=== PATIENT | male | born 1990 | race Caucasian/White ===

== ENCOUNTER → 2017-08-11 | Outpatient (CLI) | payer BC, OTHER ==
[~2017-08-11] MED LIST: ADVIN10/60 INH; ALBUAER2 INH
[2017-08-11 17:34] LABS: BASO % 0.3 %; BASO ABS # 0.02 K/uL (0-0.2); COMPLETE YES; HEMATOCRIT 40.7 % (42-52); IG% 0.1 %; LYMPH % 11.9 %; LYMPH ABS # 0.83 K/uL (1.2-3.4); MEAN CELL VOLUME 87.2 fL (80-100); MEAN CORPUSCULAR HEMOGLOBIN 30.8 pg (25-34); MEAN CORPUSCULAR HGB CONC 35.4 g/dl (32-36); MEAN PLATELET VOLUME 10.8 fL (7.4-10.4); MONO % 11.2 %; NEUT % 71.5 %; PLATELET COUNT 196 K/uL (130-400); RED BLOOD COUNT 4.67 M/uL (4.7-6.1); WHITE BLOOD COUNT 6.95 K/uL (4.8-10.8)
[2017-08-11 17:52] LABS: ALT/SGPT 21 U/L (12-78); AST/SGOT 17 U/L (15-37); BLOOD UREA NITROGEN 15 mg/dl (7-18); BUN/CREATININE RATIO 16.6 (10-20); CALCIUM 8.9 mg/dl (8.5-10.1); CARBON DIOXIDE 26 mmol/L (21-32); CHLORIDE 106 mmol/L (98-107); GLUCOSE 90 mg/dl (70-99); POTASSIUM 4.1 mmol/L (3.5-5.1); SODIUM 139 mmol/L (136-145)
[2017-08-11 18:13] LABS: ALB/GLOB RATIO 1.4 (0.9-2); ALKALINE PHOSPHATASE 88 U/L (45-117); THYROID STIMULATING HORMONE 0.782 uIu/ml (0.300-4.500)
[2017-08-11 18:14] LABS: LYME DISEASE AB IGG NEG (NEG)
[2017-08-11 18:17] LABS: LYME DISEASE AB IGM NEG (NEG)
[2017-08-15 15:45] LABS: EBV EARLY ANTIGEN AB <9.00 U/ML
== END | disposition home or self-care (01) ==
LOC: C.LABPBG 15:24
PROVIDERS: ATTEND Family Medicine
DX: R53.81 Other malaise (principal)

== ENCOUNTER 2023-11-17 11:25 | Observation (INO) ==
--- NOTE | 2023-11-17 11:50 | ED Triage Note ---
Date of Service November 17, 2023 Provider in Triage Author: Reagan Herron History of Present Illness This patient was briefly evaluated while in triage. An abbreviated physical exam was performed. This patient is a 33-year-old Male who presents to the ED for evaluation of left shoulder pain. Numbness tingling in fingers and pain as well. L shoulder/neck area. Started 3-4 weeks ago. Thought slept on it wrong. 3 days ago started to worsen and now its the worst. At [facility] and Rx a steroid recently. L sided. R handed. Worst pain he has ever had. Physical Exam GENERAL: 33 year old male. In no acute distress. SKIN: No lesions or rashes. HEART: Regular rate and rhythm. LUNGS: Clear to auscultation. ABDOMEN: Bowel sounds normoactive. No guarding or rigidity. No tenderness of palpation. NEURO: Alert and oriented. No deficits. MUSCULOSKELETAL: No deformities to inspection of the extremities. L arm in dependent position. Decreased ROM secondary to pain. PSYCH: Patient is pleasant and answers all questions appropriately. Initial orders for labs and / or imaging were placed and patient was placed in the waiting area until a bed is available. Please see further documentation for the full ED course.
--- NOTE | 2023-11-17 12:01 | Emergency Department Note ---
History of Present Illness General Chief complaint: Shoulder Pain Stated complaint: PINCHED NERVE (SHOULDER, LEFT) Time Seen by Provider: 11/17/23 11:52 History of Present Illness Maximum Pain Intensity: 10 This is an otherwise healthy 33-year-old male that presents to the emergency department via private vehicle with complaints of "left arm pain". The patient notes that beginning about 3 to 4 weeks ago he noticed some mild discomfort throughout the left side of the neck that radiated down the left arm. No known trauma or injury. Then over the past 3 days he notes significant worsening now to the point where he has trouble lifting his head secondary to neck pain and pain radiating down the left arm. He notes that there is now numbness/tingling in digits 1, 2 and 3 of the left hand. This is the nondominant extremity. No preceding illness. No fevers or chills. No known trauma or injury. No chest pain or shortness of breath. No IV drug use. No history of spine surgeries. Home Medications Medication Instructions Recorded Confirmed Type diphenhydramine HCl 25 mg tablet 25 mg PO TID PRN Allergy Symptoms 07/01/23 11/17/23 History (Benadryl Allergy) prochlorperazine maleate 5 mg 5 mg PO BID PRN nausea and 08/09/23 11/17/23 Rx tablet (Compazine) vomiting #10 tabs famotidine 20 mg tablet 20 mg PO BID #60 tabs 09/30/23 11/15/23 Rx albuterol sulfate 90 mcg/actuation 2 inh inhalation Q4H PRN shortness 10/17/23 11/17/23 Rx aerosol inhaler (ProAir HFA) of breath or wheezing #8.5 grams ibuprofen 200 mg tablet 400 mg PO Q6H PRN Pain 11/15/23 11/15/23 History pantoprazole 40 mg tablet,delayed 40 mg PO BID 1 month #60 tabs 11/16/23 11/17/23 Rx release (Protonix) fluticasone 100 mcg-salmeterol 50 0 inh inhalation BID 11/17/23 11/17/23 History mcg/dose blistr powdr for inhalation (Advair Diskus) Allergies Allergy/AdvReac Type Severity Reaction Status Date / Time montelukast [From Singulair] Allergy Mild Migraines Verified 11/15/23 13:12 and vomiting. oxycodone [From Percocet] Allergy Mild Itching Verified 11/15/23 13:12 Past Med/Surg History Medical History Asthma uses all inhalers prn Environmental allergies GERD (gastroesophageal reflux disease) Hx of migraines Surgical History Hx of local excision of skin lesion as a child, mole removed History of wisdom tooth extraction Family History Grandmother (Paternal) Myocardial infarction Denies family history of Ovarian cancer Prostate cancer Breast cancer Colorectal cancer Social History Smoking Status: Never smoker Second Hand Exposure: No; Do You Dip or Chew Tobacco: No; Hx Alcohol Use: No Hx Substance Use: No Preferred Language: Irish Communication Ability: Effective Visual Impairment: No Limitations 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 Soda x 1 bottle per day.) during the past year weight has: remained stable Dental Care, Regularly: Yes Physical Activity Frequency: Daily Seatbelt Use: always Sunscreen Use: No Assistive Devices: None Review of Systems A total of 10 systems reviewed and were otherwise negative Physical Exam Vital Signs Vital Signs - 24 hr 11/17/23 11:48 11/17/23 13:17 11/17/23 13:31 Temperature 36.9 C Temperature Source Temporal Artery Scan Pulse Rate 85 77 Pulse Rate [Apical] 105 H Pulse Rhythm [Apical] Regular Pulse Strength [Apical] Normal Respiratory Rate 18 19 Respiratory Effort / Characteristics Non-Labored Non-Labored Spontaneous Respiratory Depth Normal Normal Blood Pressure 136/82 Blood Pressure [Left Arm] 136/105 H Blood Pressure Mean 100 Blood Pressure Mean [Left Arm] 115 Pulse Oximetry 97 97 Oxygen Delivery Method Room Air Room Air Sepsis Recent Fever Within 48 Hours No Sepsis New/Unexplained Change in Mental Status No Sepsis Action Taken by Nursing No Action Required 11/17/23 13:35 11/17/23 14:52 Temperature Temperature Source Pulse Rate Pulse Rate [Apical] 92 H Pulse Rhythm [Apical] Regular Pulse Strength [Apical] Normal Respiratory Rate 18 Respiratory Effort / Characteristics Non-Labored Spontaneous Respiratory Depth Normal Blood Pressure Blood Pressure [Left Arm] 134/88 Blood Pressure Mean Blood Pressure Mean [Left Arm] 103 Pulse Oximetry 98 95 Oxygen Delivery Method Room Air Room Air Sepsis Recent Fever Within 48 Hours Sepsis New/Unexplained Change in Mental Status Sepsis Action Taken by Nursing VITAL SIGNS - Vital signs and nursing notes were reviewed. Stable and afebrile. GENERAL -33-year-old male appearing his stated age who is in no acute distress. Communicates well with provider and answers questions appropriately. SKIN - Without rashes. No meningeal or petechial rash. The skin overlying the left side of the neck, left side of the head and left arm is unremarkable. No rashes. HEAD - NC/AT. EYES - PERRL with EOMI bilaterally. Sclera anicteric. EARS - No deformities of external structures noted on gross examination bilaterally. External auditory canals without discharge or otorrhea. Tympanic membranes pearly landin without retraction or bulging. No fluid or purulent material visualized behind the TM. Handle of malleus, umbo, cone of light, pars tensa/flaccid all easily visualized. NOSE - Midline and without cyanosis. No epistaxis or purulent drainage noted. Septum midline without deviation or septal hematoma noted. MOUTH/OROPHARYNX - Without perioral cyanosis. Buccal mucosa pink and moist and without leukoplakia. Tongue midline with equal elevation of palate bilaterally. No tonsillar hypertrophy, erythema, or exudates noted. Good dentition noted. NECK -patient is sitting in a chair in the exam room with the neck in a downward/forward flexed position. Decreased range of motion noted secondary to pain. No tenderness throughout the neck to palpation. Palpable muscle spasm to the left posterior paraspinous musculature throughout the C-spine extending in the left trapezius region no nuchal rigidity. LUNGS - Chest wall symmetric without accessory muscle use, intercostals retractions, or central cyanosis. Normal vesicular breath sounds CTA B/L. No wheezes, rales, or rhonchi appreciated. CARDIAC - RRR with S1/S2. No murmur, rubs, or gallops appreciated. EXTREMITIES - No clubbing or peripheral cyanosis. No pretibial edema present. Left upper extremity appropriately warm and well-perfused. Physician Pediatrician strength within normal limits bilaterally. Biceps reflex within normal limits bilaterally. +5/5 strength noted in UE/LE bilaterally. NEUROLOGIC - Cranial nerves II through XII grossly intact. Sensory intact to light touch throughout. PSYCH - A&Ox3 and cooperates fully with examiner. Pt is very pleasant and interacts well with examiner. Course Administered Medications Discontinued Medications Cyclobenzaprine HCl (Cyclobenzaprine Hcl 10 Mg Tab) 10 mg PO NOW STA Stop: 11/17/23 12:08 Last Admin: 11/17/23 12:19 Dose: 10 mg Documented By: TEE Dexamethasone Sodium Phosphate (DexamethasonePf 10 Mg/Ml Vial) 10 mg IV NOW ONE Stop: 11/17/23 12:08 Last Admin: 11/17/23 12:21 Dose: 10 mg Documented By: TEE Hydromorphone HCl (Hydromorphone Inj 0.5 Mg/0.5 Ml Syr) 0.5 mg IV NOW STA Stop: 11/17/23 13:10 Last Admin: 11/17/23 13:16 Dose: 0.5 mg Documented By: TEE Hydromorphone HCl (Hydromorphone Inj 0.5 Mg/0.5 Ml Syr) 0.5 mg IV NOW STA Stop: 11/17/23 14:45 Last Admin: 11/17/23 14:49 Dose: 0.5 mg Documented By: TEE Lidocaine (Lidocaine 5% 1 Patch) 1 patch TD NOW STA Stop: 11/17/23 12:08 Last Admin: 11/17/23 12:20 Dose: 1 patch Documented By: TEE Ondansetron HCl (Ondansetron Inj 2 Mg/Ml 2 Ml Vial) 4 mg IV NOW STA Stop: 11/17/23 13:10 Last Admin: 11/17/23 13:14 Dose: 4 mg Documented By: TEE Medical Decision Making Laboratory Data 11/17/23 12:00 11/17/23 12:00 Lab Results 11/17/23 Range/Units 12:00 WBC 5.42 (4.8-10.8) K/ul RBC 5.34 (4.70-6.10) M/uL Hgb 16.8 (14.0-18.0) g/dl Hct 45.3 (42.0-52.0) % MCV 84.8 (80.0-100.0) fL MCH 31.5 (25.0-34.0) pg MCHC 37.1 H (32.0-36.0) g/dL RDW Std Deviation 36.3 L (36.4-46.3) fL RDW Coeff of Valentina 11.9 (11.5-14.5) % Plt Count 234 (130-400) K/uL MPV 10.7 (9.4-12.4) fL Immature Gran % (Auto) 0.2 % Neut % (Auto) 56.5 % Lymph % (Auto) 21.2 % Harmon % (Auto) 5.5 % Eos % (Auto) 15.7 % Baso % (Auto) 0.9 % Neut # (Auto) 3.06 (1.40-6.50) K/uL Lymph # (Auto) 1.15 L (1.20-3.40) K/uL Harmon # (Auto) 0.30 (0.11-0.59) K/uL Eos # (Auto) 0.85 H (0.00-0.50) K/uL Baso # (Auto) 0.05 (0.00-0.20) K/uL Immature Gran # (Auto) 0.01 (0.01-0.20) K/uL Sodium 139 (136-145) mmol/L Potassium 4.4 (3.5-5.1) mmol/L Chloride 106 (98-107) mmol/L Carbon Dioxide 27 (21-32) mmol/L Anion Gap 6 (3-11) BUN 17 (6-23) mg/dl Creatinine 0.96 (0.6-1.4) mg/dl Est Cr Clr Drug Dosing 108.4 ml/min Est GFR ( Amer) 119.0 ml/min Est GFR (Non-Af Amer) 102.7 ml/min BUN/Creatinine Ratio 17.7 (10-20) Glucose 97 (70-99(Fasting)) mg/dl Calcium 9.9 (8.6-10.3) mg/dl Total Bilirubin 0.7 (0.2-1.0) mg/dl AST 20 (13-39) U/L ALT 28 (7-52) U/L Alkaline Phosphatase 74 (34-104) U/L Total Protein 7.5 (6.0-8.3) gm/dl Albumin 4.9 (3.4-5.0) gm/dl Globulin 2.6 (2.5-4.0) gm/dl Albumin/Globulin Ratio 1.9 (0.9-2) Imaging Data Radiologist's Impression: Cervical Spine X-Ray 11/17/23 11:51 XR cervical [id number] routine HISTORY: 33 years-old Male L sided neck pain acute left-sided neck pain without reported trauma COMPARISON: None TECHNIQUE: 5 views of the cervical spine FINDINGS: Limited exam secondary to positioning and patient movement. There is kyphotic curvature centered at C5-C6 which may be positional. The C6 and C7 segments are not well seen on lateral images secondary to positioning. No acute fracture, subluxation or suspicious bone lesion. Mild intervertebral disc space narrowing and spondylotic spurring at C6-C7. The neural foramina appear patent. No prevertebral edema. Lung apices appear clear. IMPRESSION: No acute fracture or subluxation identified. ACT 112: Negative or not required by law. The above report was generated using voice recognition software. It may contain grammatical, syntax or spelling errors. Electronically signed by: Enrique Roman M.D. 11/17/2023 12:26 PM Cervical Spine MRI 11/17/23 13:09 MRI OF THE CERVICAL SPINE WITHOUT IV CONTRAST CLINICAL HISTORY: Left-sided neck pain. Left arm pain and numbness. COMPARISON STUDY: Radiographs of the cervical spine dated 11/17/2023. TECHNIQUE: MRI of the cervical spine is performed utilizing various T1 and T2- weighted sequences in the axial and sagittal planes. IV contrast was not administered for this examination. FINDINGS: Cervical spine: Vertebral body height and alignment are maintained throughout the cervical spine. There is straightening of the cervical lordosis with mild reversal centered at C6. The atlantodental articulation is preserved. The spinous processes appear intact. No destructive bony lesion is seen. Intervertebral discs: There is mild disc desiccation. The disc spaces are maintained. Spinal cord: The cervical cord is normal in morphology and signal intensity. C2-C3: Unremarkable. C3-C4: Unremarkable. C4-C5: A tiny posterior disc osteophyte complex minimally effaces the ventral subarachnoid space. The central canal and neural foramina are patent. C5-C6: Unremarkable. C6-C7: There is a large left posterolateral disc extrusion seen on sagittal image #10 and axial image #91. The extruded fragment measures up to 8 mm and impinges on the exiting left C7 nerve root. This effaces the left anterior aspect of the thecal sac and contributes to at least moderate left neural foraminal stenosis. The right neural foramen is patent. C7-T1: Unremarkable. Soft tissues: The prevertebral and paraspinous soft tissues are normal as visualized. Brain parenchyma: The imaged brain parenchyma at the skull base is within normal limits. IMPRESSION: 1. Large posterolateral disc extrusion eccentric to the left at C6-C7. This causes at least moderate left neural foraminal stenosis and impinges on the exiting left C7 nerve root. 2. Minimal degenerative change at the remaining cervical levels as above. 3. No destructive bony process is seen. Dictated: 11/17/2023 2:17 PM Transcribed: 11/17/2023 2:56 PM [facility] [id number] Chasity [id number] Electronically signed by: Junito Antonio M.D. 11/17/2023 3:14 PM [facility] Narrative Patient was seen and evaluated as above in room D02. Review was performed of triage nursing notes and vital signs. After obtaining a thorough history and physical examination the above work up was performed. Patient presents to us today for evaluation of ongoing left-sided neck pain that radiates in the left arm now with numbness/tingling in digits 1 2 and 3 of the left hand. This does seem to fit with dermatomes C6/C7. Presentation most consistent with that of cervical radiculopathy. No infectious symptoms. Options of care were discussed with the patient. IV access was established. Labs were drawn. He already had ibuprofen as well as acetaminophen earlier today around 9 AM. We will proceed with a dose of IV steroids, oral muscle relaxer such as cyclobenzaprine and topical lidocaine patch. Cervical spine x- rays were ordered. Patient was reevaluated with minimal improvement. I did speak with Dr. Damico at 1:28 PM on 11/17/2023. We will proceed with MRI of the cervical spine. I called MRI and he will be taken there to MRI momentarily. Dr. Damico will watch for the MRI and call with his recommendations. MRI as above. There is a large posterior lateral disc extrusion eccentric to the left at C6-C7. This causes at least moderate left neuroforaminal stenosis and impinges on the exiting left C7 nerve root. This is felt to be the cause of the patient's symptoms. Despite several rounds of IV analgesia and medication the patient continues to be experiencing significant discomfort in the neck with radicular symptoms on the left upper extremity. Dr. Damico came to evaluate the patient and plan at this time is inpatient management with likely surgical intervention tomorrow. Patient amenable to plan of care. Please refer to further documentation regarding his stay. GCS: 15 In the evaluation and treatment of this patient, the following differential diagnoses were considered: Musculoskeletal Strain, Discitis, Cervical Spine Fracture, Cervical Spine Dislocation, Cervical Spine Subluxation, Cervical Spondylosis, Osteoarthritis, Tumor of Soft Tissue or Spine among others. Impression & Plan Herniation of cervical intervertebral disc with radiculopathy Discharge Plan Visit Data Chief Complaint: Shoulder Pain Stated Complaint: PINCHED NERVE (SHOULDER, LEFT) ED Provider: Mita Kitchen ED Midlevel Provider: Reagan Herron Discharge Problem: Herniation of cervical intervertebral disc with radiculopathy Patient Disposition: Admitted As Inpatient Condition: Good Forms Stand Alone Forms: [employer] Prescriptions Prescriptions: No Action prochlorperazine maleate [Compazine] 5 mg tablet 5 mg PO BID PRN (Reason: nausea and vomiting) Qty: 10 0RF Patient Comments: uses w/migraines albuterol sulfate [ProAir HFA] 90 mcg/actuation HFA aerosol inhaler 2 inh inhalation Q4H PRN (Reason: shortness of breath or wheezing) Qty: 8.5 1RF pantoprazole [Protonix] 40 mg tablet,delayed release (DR/EC) 40 mg PO BID 30 Days Qty: 60 3RF famotidine 20 mg tablet 20 mg PO BID Qty: 60 2RF Patient Comments: have medication, but has not needed due to increase in Protonix. diphenhydramine HCl [Benadryl Allergy] 25 mg tablet 25 mg PO TID PRN (Reason: Allergy Symptoms) ibuprofen 200 mg Tablet 400 mg PO Q6H PRN (Reason: Pain) Patient Comments: ususally uses 2 tablets per day fluticasone propion-salmeterol [Advair Diskus] 100-50 mcg/dose blister with device 0 inh inhalation BID Patient Comments: doesn't use Rx Instructions: Last fill date 02/2023 - Unable to verify w/ pt if they have been getting this medication somewhere else. Referrals Referrals: Shelia Lomax DO [Primary Care Provider] -
[2023-11-17] MEDS ORDERED: LIDOCAINE 5% 1 PATCH TD STA (12:07)
[2023-11-17] MEDS ORDERED: dexAMETHasone**PF** 10 MG/ML VIAL IV ONE (12:07)
[2023-11-17] MEDS ORDERED: CYCLOBENZAPRINE HCL 10 MG TAB PO STA (12:07)
[2023-11-17 12:19] LABS: Basophils # (auto) 0.05 K/uL (0.00-0.20); Basophils % (auto) 0.9 %; Eosinophils # (auto) 0.85 K/uL (0.00-0.50); Eosinophils % (auto) 15.7 %; Hematocrit (blood only) 45.3 % (42.0-52.0); Hemoglobin 16.8 g/dl (14.0-18.0); Immature Granulocytes # (auto) 0.01 K/uL (0.01-0.20); Immature Granulocytes % (auto) 0.2 %; Lymphocytes # (auto) 1.15 K/uL (1.20-3.40); Lymphocytes % (auto) 21.2 %; Mean Corpuscular Hemoglobin 31.5 pg (25.0-34.0); Mean Corpuscular Hgb Conc 37.1 g/dL (32.0-36.0); Mean Corpuscular Volume 84.8 fL (80.0-100.0); Mean Platelet Volume 10.7 fL (9.4-12.4); Monocytes % (auto) 5.5 %; Neutrophils # (auto) 3.06 K/uL (1.40-6.50); Neutrophils % (auto) 56.5 %; Platelet Count 234 K/uL (130-400); RDW Coefficient of Variation 11.9 % (11.5-14.5); RDW Standard Deviation 36.3 fL (36.4-46.3); Red Blood Count 5.34 M/uL (4.70-6.10); White Blood Count 5.42 K/ul (4.8-10.8)
--- NOTE | 2023-11-17 12:27 | XRay Report ---
XR cervical [id number] routine HISTORY: 33 years-old Male L sided neck pain acute left-sided neck pain without reported trauma COMPARISON: None TECHNIQUE: 5 views of the cervical spine FINDINGS: Limited exam secondary to positioning and patient movement. There is kyphotic curvature centered at C 5-C6 which may be positional. The C6 and C7 segments are not well seen on lateral images secondary to positioning. No acute fracture, subluxation or suspicious bone lesion. Mild intervertebral disc spac e narrowing and spondylotic spurring at C6-C7. The neural foramina appear patent. No prevertebral fide ma. Lung apices appear clear. IMPRESSION: No acute fracture or subluxation identified. ACT 112: Negative or not required by law. The above report was generated using voice recognition software. It may contain grammatical, syntax o r spelling errors. Electronically signed by: Enrique Roman M.D. 11/17/2023 12:26 PM
[2023-11-17 12:39] LABS: Albumin Globulin Ratio 1.9 (0.9-2); Albumin Level 4.9 gm/dl (3.4-5.0); BUN Creatinine Ratio 17.7 (10-20); Bilirubin,Total 0.7 mg/dl (0.2-1.0); Calcium 9.9 mg/dl (8.6-10.3); Creatinine Clr Calc Pharmacy 108.4 ml/min; Est GFR (Non-African American) 102.7 ml/min; Globulin 2.6 gm/dl (2.5-4.0); Potassium 4.4 mmol/L (3.5-5.1); Total Protein 7.5 gm/dl (6.0-8.3)
[2023-11-17] MEDS ORDERED: ONDANSETRON INJ 2 MG/ML 2 ML VIAL IV STA (13:09)
[2023-11-17] MEDS ORDERED: HYDROmorphone INJ 0.5 MG/0.5 ML SYR IV STA ×3 (13:09→17:27)
--- NOTE | 2023-11-17 15:16 | Magnetic Resonance Report ---
MRI OF THE CERVICAL SPINE WITHOUT IV CONTRAST CLINICAL HISTORY: Left-sided neck pain. Left arm pain and numbness. COMPARISON STUDY: Radiographs of the cervical spine dated 11/17/2023. TECHNIQUE: MRI of the cervical spine is performed utilizing various T1 and T2-weighted sequences in t he axial and sagittal planes. IV contrast was not administered for this examination. FINDINGS: Cervical spine: Vertebral body height and alignment are maintained throughout the cervical spine. The re is straightening of the cervical lordosis with mild reversal centered at C6. The atlantodental art iculation is preserved. The spinous processes appear intact. No destructive bony lesion is seen. Intervertebral discs: There is mild disc desiccation. The disc spaces are maintained. Spinal cord: The cervical cord is normal in morphology and signal intensity. C2-C3: Unremarkable. C3-C4: Unremarkable. C4-C5: A tiny posterior disc osteophyte complex minimally effaces the ventral subarachnoid space. The central canal and neural foramina are patent. C5-C6: Unremarkable. C6-C7: There is a large left posterolateral disc extrusion seen on sagittal image #10 and axial image #91. The extruded fragment measures up to 8 mm and impinges on the exiting left C7 nerve root. This effaces the left anterior aspect of the thecal sac and contributes to at least moderate left neural f oraminal stenosis. The right neural foramen is patent. C7-T1: Unremarkable. Soft tissues: The prevertebral and paraspinous soft tissues are normal as visualized. Brain parenchyma: The imaged brain parenchyma at the skull base is within normal limits. IMPRESSION: 1. Large posterolateral disc extrusion eccentric to the left at C6-C7. This causes at least moderate left neural foraminal stenosis and impinges on the exiting left C7 nerve root. 2. Minimal degenerative change at the remaining cervical levels as above. 3. No destructive bony process is seen. Dictated: 11/17/2023 2:17 PM Transcribed: 11/17/2023 2:56 PM T[facility] [id number] Chasity [id number] Electronically signed by: Junito Antonio M.D. 11/17/2023 3:14 PM
--- NOTE | 2023-11-17 15:22 | History & Physical Report ---
Date of Service November 17, 2023 Assessment & Plan (1) Herniation of cervical intervertebral disc with radiculopathy: Plan: Assessment cervical disc herniation C6-C7 on left with fragments occupying the neuroforamen. Plan in length yesterday with the patient and his reviewing his MRI findings and clinical presentation. This point he has severe discomfort marked neural deficits with weakness involving left upper extremity. He could consider surgical invention. It would require an anterior cervical discectomy and C6-C7 for adequate removal of the disc fragments and decompression of the nerve roots. Risk benefits pros cons alternatives were detail. Risk include but not limited to anesthesia blindness stroke paralysis nerve damage blood loss requiring transfusion infection requiring reoperation dysphagia and dysphonia. Benefits would be improvement of his radiculopathy and time recovery of his strength deficits. At this time would like to pursue surgery in light of his severe pain. Will make him n.p.o. after midnight with plan for surgery in the a.m. History of Present Illness Chief Complaint: Severe left arm pain with weakness Primary Care Provider: Shelia Lomax DO This is a 33-year-old [id number] male who presents emergency room with severe left arm pain and weakness. He states he had a history of neck pain and left arm symptoms for approximately a month. Unfortunately last 2 days it has been severe in nature. Is nonradiating. It radiates to the left intrascapular region down the left posterior arm below the elbow into his middle fingers. His right upper extremity is asymptomatic. He denies any specific trauma fall or event. He notes marked sensory deficits to the left hand compared to the right. He is unable to sleep. Medications are not providing any relief. Allergies Allergy/AdvReac Type Severity Reaction Status Date / Time montelukast [From Singulair] Allergy Mild Migraines Verified 11/15/23 13:12 and vomiting. oxycodone [From Percocet] Allergy Mild Itching Verified 11/15/23 13:12 Home Medications Medication Instructions Recorded Confirmed Type diphenhydramine HCl 25 mg tablet 25 mg PO TID PRN Allergy Symptoms 07/01/23 11/17/23 History (Benadryl Allergy) prochlorperazine maleate 5 mg 5 mg PO BID PRN nausea and 08/09/23 11/17/23 Rx tablet (Compazine) vomiting #10 tabs famotidine 20 mg tablet 20 mg PO BID #60 tabs 09/30/23 11/15/23 Rx albuterol sulfate 90 mcg/actuation 2 inh inhalation Q4H PRN shortness 10/17/23 11/17/23 Rx aerosol inhaler (ProAir HFA) of breath or wheezing #8.5 grams ibuprofen 200 mg tablet 400 mg PO Q6H PRN Pain 11/15/23 11/15/23 History pantoprazole 40 mg tablet,delayed 40 mg PO BID 1 month #60 tabs 11/16/2311/17 Rx release (Protonix) fluticasone 100 mcg-salmeterol 50 0 inh inhalation BID 11/17/23 11/17/23 History mcg/dose blistr powdr for inhalation (Advair Diskus) Past Med/Surg History Medical History Asthma uses all inhalers prn Environmental allergies GERD (gastroesophageal reflux disease) Hx of migraines Surgical History Hx of local excision of skin lesion as a child, mole removed History of wisdom tooth extraction Family History Grandmother (Paternal) Myocardial infarction Denies family history of Ovarian cancer Prostate cancer Breast cancer Colorectal cancer Social History Smoking Status: Never smoker Second Hand Exposure: No; Do You Dip or Chew Tobacco: No; Hx Alcohol Use: No Hx Substance Use: No Preferred Language: Amharic Communication Ability: Effective Visual Impairment: No Limitations Hearing Ability: Normal Manager Clinical Services Required: No Beliefs That Will Affect Care: None marital status: Current Living Situation: Spouse and Family current occupational status: employed Feels Safe at Home: Yes Childhood Exposure to Second-Hand Smoke: Yes (mother smoked.) Diet: regular Diet Comment: Regular caffeine: Yes (Tea x 2 per day. Soda x 1 bottle per day.) during the past year weight has: remained stable Dental Care, Regularly: Yes Physical Activity Frequency: Daily Seatbelt Use: always Sunscreen Use: No Assistive Devices: None Physical Exam Physical Exam: On exam is seen by the side of the bed. He holds his head flexed. He is unable to look up secondary to pain with cervical extension. He has markedly positive Spurling's to the left. He exhibits a plus 5 out of 5 bilateral grasp and biceps with a 3/5 left tricep compared to 5/5 on the right. There is marked sensory deficits to light touch to the left lower extremity compared to the right. Deep tendon reflexes are diminished. Negative Deborah sign. Results & Data Results & Data Vital Signs (Past 12 Hours) Vital Signs Temp Pulse Pulse Resp BP BP Pulse Ox 11/17/23 14:52 92 H 18 134/88 95 11/17/23 13:35 98 11/17/23 13:31 77 11/17/23 13:17 105 H 19 136/105 H 97 11/17/23 11:48 36.9 C 85 18 136/82 97 O2 Del Method 11/17/23 14:52 Room Air 11/17/23 13:35 Room Air 11/17/23 13:31 11/17/23 13:17 Room Air 11/17/23 11:48 Room Air
--- OUTSIDE RECORDS SUMMARY | 2023-11-17 15:28 | External Medical Summary | Summary of Care ---
Author Name Unknown Organization [facility] Address [address] [place] [address] Phone [phone] Care Team Providers Care Environmental Law Professor Name Role Phone Unavailable Primary Care Provider Unavailabl e Reason for Visit * Reason Comments Physical-Exam Encounter Details Date Type Department Care Team (Late st Contact Info) Description 11/04/2023 8:00 AM EST Office Visit Family Medicine [address] [phone] Mercedez Peralta PA-C [address] [place] [address] [place] [id number] [facility] Bottom Wheeler's Physical* Allergies Active Allergy Reactions Criticality Noted Date Comments Sumatriptan 12/17/2021 Oxycodone 12/17/2021 Percocet Montelukast 12/17/2021 documented as of this encounter (statuses as of 11/04/2023) Medications Medication Sig Dispensed Refills Start Date End Date Status ALBUTEROL 90 MCG/ACT IN AERS as directed 0 12/21/2006 Active ADVAIR DISKUS 100-50 MCG/DOSE IN AEPB as directed 0 Active Omeprazole 20 MG Oral Capsule Delayed Release (PriLOSEC) Take 1 Capsule by mouth in the morning. 0 Active documented as of this encounter (statuses as of 11/04/2023) Active Problems No known active problems documented as of this encounter (statuses as of 11/04/2023) Immunizations No known immunizationsdocumented as of this encounter Social History Tobacco Use Types Packs/Day Years Used Date Smoking Tobacco: Never Smokeless Tobacco: Never Alcohol Use Standard Drinks/Week Comments No 0 (1 standard drink = 0.6 oz pur e alcohol) Sex and Gender Information Value Date Recorded Sex Assigned at Not on file Gender Identity Not on file Sexual Orientation Not on file Job Start Date Occupation Industry Not on file Not on file Not on file documented as of this encounter Last Filed Vital Signs Vital Sign Reading Time Taken Comments Blood Pressure - - Pulse 86 11/04/2023 8:05 AM EST Temperature 36.4 C (97.5 F) 11/04/2023 8:05 AM ES T Respiratory Rate 16 11/04/2023 8:05 AM EST Oxygen Saturation - - Inhaled Oxygen Concentration - - Weight 77.7 kg (171 lb 4 oz) 11/04/2023 8:05 AM EST Height 175.3 cm (5' 9") 11/04/2023 8:05 AM EST Body Mass Index 25.29 11/04/2023 8:05 AM EST documented in this encounter Progress Notes * Mercedez Peralta PA-C - 11/04/2023 8:05 AM EST Nursing Notes: Tori Askew LPN 11/04/23 0806 Sign at exiting of workspace CDL Pt here today for CDL PE. Pt with PMH of asthma, GERD. Pt has no issues at this time. Review of patient's allergies indicates: Allergen Reactions Imitrex [Sumatriptan] Oxycodone Percocet Singulair [Montelukast] Current Outpatient Medications Medication Sig Dispense Refill ALBUTEROL 90 MCG/ACT IN AERS as directed 0 ADVAIR DISKUS 100-50 MCG/DOSE IN AEPB as directed Omeprazole 20 MG Oral Capsule Delayed Release (PriLOSEC) Take by mouth 20 mg in the morning. No current facility-administered medications for this visit. No past medical history on file. Social History Socioeconomic History Marital status: Single Spouse name: Not on file Number of children: Not on file Years of education: Not on file Highest education level: Not on file Occupational History Not on file Tobacco Use Smoking status: Never Smokeless tobacco: Never Substance and Sexual Activity Alcohol use: No Drug use: No Sexual activity: Not on file Other Topics Concern Not on file Social History Narrative Not on file Social Determinants of Health Financial Resource Strain: Not on file Food Insecurity: Not on file Transportation Needs: Not on file Physical Activity: Not on file Stress: Not on file Social Connections: Not on file Intimate Partner Violence: Not on file Housing Stability: Not on file O:Pulse 86, temperature 36.4 C (97.5 F), temperature source Tympanic, resp. rate 16, height 1.753 m (5' 9"), weight 77.7 kg (171 lb 4 oz). [facility] Physical Examination [place] [employer] Date of exam: November 04, 2023 Certification: Recertification Bottom Wheeler's Name: Jd Andrew [address]: [address] [place] [address] SSN: [id number] Date of : 1990 Age: [age] year old Sex: male Phone: Home/Work: There are no phone numbers on file. Bottom Wheeler License No: [id number] License class-A,B,C,D, other: State of issue: [place] Health History: Any illness or injury in the last 5 years: no Head/Brain injuries, disorders or illnesses: no Seizures, epilepsy: no If yes- Medication: na Eye disorders or impaired vision (except corrective lenses): no Ear disorders, loss of hearing or balance: no Heart disease or heart attack; other cardiovascular condition: no If yes- Medication: na Heart surgery (valve replacement/bypass, angioplasty, pacemaker): no High blood pressure: no If yes-Medication: na Shortness of breath: no Lung disease, emphysema, asthma, chronic bronchitis: asthma Kidney disease, dialysis: no Liver disease: no Digestive problems: no Diabetes or elevated blood sugar controlled by: no Diet/pills/insulin: na Nervous or psychiatric disorders, e.g., servere depression: no If yes- Medication: na Loss of,or altered consciousness: no Fainting, dizziness: no Sleep disorders, pauses in breathing while asleep, daytime sleepiness, loud snoring: no Stroke or paralysis: no Missing or impaired hand, arm, foot, leg, finger, toe: no Spinal injury or disease: no Chronic low back pain: no Regular, frequent alcohol use: no Narcotic or habit forming drug use: no For any YES answer, indicate onset date, diagnosis, treating physicians name and address, and any curret limitations: List all medications (including over the counter medications) used regularly or recently. Asthma - controlled General appearance and development: Vision: acuity, color vision, field of vision as noted above Evidence of disease or injury: Right: no Right: 20/15 Left: no Left: 20/15 Both: no Both: 20/15 Corrected: Horizontal Field Of Vision: Right eye: na Right eye: 90 Left eye: na Left eye: 90 Applicant can recognize and distinguish amount traffic control signals and devices showing standardred, green and tim: yes Applicant meets visual acuity requirement only when wearing: Corrective lenses: no Monocular Vision: no Hearing: Audiometric screen as noted above. Right: Normal Left: Normal Evidence of disease or injury: no Pulse 86 | Temp 36.4 C (97.5 F) (Tympanic) | Resp 16 | Ht 1.753 m (5' 9") | Wt 77.7 kg (171 lb 4 oz) | BMI 25.29 kg/m | BSA 1.95 m General appearance: normal Eyes: Normal Ears: Normal Mouth/Throat: Normal Thorax: Heart: Normal If organic disease is present, is it fully compensated? na Blood Pressure: 100/66 Pulse: 86 Lungs: Normal Abdomen: Scars: no Abnormal masses: no Tenderness: no Hernia: no Is truss worn? no Vascular disease: no Gastrointestinal: Ulceration or other diseases: no Genito-urinary: Scars: no Urethral discharge: no Reflexes: Rhomberg: Normal Pupillary: Normal Light: Right: Normal Left: Normal Accomodation: Right: Normal Left: Normal Knee Jerks: Right: normal Left: normal Remarks: Extremities: Upper: Normal Lower: Normal Spine: Normal Laboratory and other special findings: Urine: Specific [place]: 1.030 Albumin: Normal Sugar: Normal Other laboratory data: Serology: Radiologic data: Electrocardiograph: Controlled substances testing: Controlled substances test NOT performed General comments: normal PE Meets standards in 49 CFR 391.41; qualifies for 2 year certificate: YES Does not meet standards: N/A Meets standards, but periodic monitoring required due to: N/A Bottom Wheeler qualified only for: 3, 6, l year, other: months allowed/n/a: na Temporarily disqualified due to (condition or medication): N/A Return to medical practitioners's office for follow up on: not applicable Wearing corrective lenses: no Wearing hearing aid: no Accompanied by a waiver/exemption. Bottom Wheeler must present exemption at time of certification. N/A Skill Performance Evaluation (SPE) Certificate. N/A Driving within an exempt intracity zone (See 49 CFR 391.62): N/A Qualified by operation of 49 CFR 391.64: N/A Signature of medical provider Name of medical practitioners: Mercedez Peralta PA-C Address of medical practitioners: [address] [facility] [phone] latent print examiner's Certificate to be completed only if van driver is found qualified. documented in this encounter Nursing Notes * Tori Askew LPN - 11/04/2023 8:02 AM EST CDL documented in this encounter Plan of Treatment Health Maintenance Due Date Last Done Comments Hepatitis B (1 of 3 - 3-dose series) 1990 COVID-19 Vaccine (#1) 1989 Depression Screening 2001 HIV Screening 2004 Hepatitis C Screening 2007 DTaP,Tdap,and Td Vaccines (1 - Tdap) 2008 Influenza Vaccine (FLU shot) (#1) 2023 GARDASIL-HPV IMMUNIZATION SERIES Aged Out No longer eligible based on patient's age to complete this topic MENINGOCOCCAL (MENACTRA/MENVEO) Aged Out No longer eligible based on patient's age to complete this topic Pneumococcal Vaccine: Pediat rics (0 to 5 Years) and At-Risk Patients (6 to 64 Years) Aged Out No longer eligible b ased on patient's age to complete this topic documented as of this encounter Medical Devices Not on filedocumented as of this encounter Procedures Procedure Name Priority Date/Time Associated Diagnosis Comments URINALYSIS, POINT OF CARE (ENTER/EDIT) Routine 11/04/2023 [facility] Bottom Wheeler's Physical VISUAL ACUITY SCREEN, NURSE/TECH Routine 11/04/2023 [facility] Bottom Wheeler's Physical HEARING SCREEN Routine 11/04/2023 [facility] Bottom Wheeler's Physical documented in this encounter Results * VISUAL ACUITY SCREEN, NURSE/TECH (11/04/2023) 11/04/2023 Narrative Tori Askew LPN - 11/04/2023 8:32 AM EST 20/15 right and left 20/13 both No correction Passed color test Mercedez Peralta PA-C MEDICINE * HEARING SCREEN (11/04/2023) 11/04/2023 Narrative Tori Askew LPN - 11/04/2023 8:33 AM EST Both ears at 20 dbls except 40dbls for [address] Mercedez [facility] MEDICINE * URINALYSIS, POINT OF CARE (ENTER/EDIT) (11/04/2023) Color, Urine Yellow Yellow or Light Yellow Clarity, Urine Clear Clear Glucose, Urine Negative Negative mg/dL Bilirubin, Urine Negative Negative Ketone, Urine Negative Negative mg/dL Specific [place], Urine 1.030 1.003 - 1.030 Blood, Urine Negative Negative pH, Urine 6.0 5.0 - 7.5 units Protein, Urine Negative Negative mg/dL Urobilinogen, Urine 0.2 0.2 - 1.0 mg/dL Nitrite, Urine Negative Negative Esterase, Urine Negative Negative Urine 11/04/2023 Mercedez Peralta PA-C LAB POINT OF CARE TEST ENTER/EDIT ORDERABLES documented in this encounter Visit Diagnoses Diagnosis [facility] Bottom Wheeler's Physical- Primary Unspecified general medical examination documented in this encounter
--- OUTSIDE RECORDS SUMMARY | 2023-11-17 15:28 | External Medical Summary | Summary of Care ---
Author Name Unknown Organization [facility] Address [address] [place] [address] Phone [phone] Care Team Providers Care Communications Technologist Name Role Phone Unavailable Primary Care Provider Unavailabl e Reason for Visit * Reason Comments Physical-Exam Encounter Details Date Type Department Care Team (Late st Contact Info) Description 11/04/2023 8:00 AM EST Office Visit Family Medicine [address] [phone] Mercedez Peralta PA-C [address] [place] [address] [place] [id number] [facility] Neuropsychology Service Director's Physical* Allergies Active Allergy Reactions Criticality Noted [...] (171 lb 4 oz). [facility] Physical Examination [place] [employer] Date of exam: November 04, 2023 Certification: Recertification Neuropsychology Service Director's Name: Jd Andrew Address: [address] [place] [id number] SSN: [id number] Date of : 1990 Age: [age] year old Sex: male Phone: Home/Work: There are no phone numbers on file. Neuropsychology Service Director License No: [id number] License class-A,B,C,D, other: State of issue: [place] [...] Laboratory and other special findings: Urine: Specific [place]: 1.030 Albumin: Normal Sugar: Normal Other laboratory data: Serology: Radiologic data: Electrocardiograph: Controlled substances testing: Controlled substances test NOT performed General comments: normal PE Meets standards in 49 CFR 391.41; qualifies for 2 year certificate: YES Does not meet standards: N/A Meets standards, but periodic monitoring required due to: N/A Neuropsychology Service Director qualified only for: 3, 6, l year, other: months allowed/n/a: na Temporarily disqualified due to (condition or medication): N/A Return to dental assistant medical assistant's office for follow up on: not applicable Wearing corrective lenses: no Wearing hearing aid: no Accompanied by a waiver/exemption. Neuropsychology Service Director must present exemption at time of certification. N/A Skill Performance Evaluation (SPE) Certificate. N/A Driving within an exempt intracity zone (See 49 CFR 391.62): N/A Qualified by operation of 49 CFR 391.64: N/A Signature of medical provider Name of dental assistant medical assistant: Mercedez Peralta PA-C Address of dental assistant medical assistant: [address] [facility] [phone] examiner rating clerk's Certificate to be completed only if special client bus driver is found qualified. documented in this [...] URINALYSIS, POINT OF CARE (ENTER/EDIT) Routine 11/04/2023 [facility] Neuropsychology Service Director's Physical VISUAL ACUITY SCREEN, NURSE/TECH Routine 11/04/2023 [facility] Neuropsychology Service Director's Physical HEARING SCREEN Routine 11/04/2023 [facility] Neuropsychology Service Director's Physical documented in this encounter Results * [...] Negative Ketone, Urine Negative Negative mg/dL Specific [place], Urine 1.030 1.003 - 1.030 Blood, Urine Negative Negative pH, Urine 6.0 5.0 - 7.5 units Protein, Urine Negative Negative mg/dL Urobilinogen, Urine 0.2 0.2 - 1.0 mg/dL Nitrite, Urine Negative Negative Esterase, Urine Negative Negative Urine 11/04/2023 Mercedez Peralta PA-C LAB POINT OF CARE TEST ENTER/EDIT ORDERABLES documented in this encounter Visit Diagnoses Diagnosis [facility] Neuropsychology Service Director's Physical- Primary Unspecified general medical examination documented in this encounter
[2023-11-17] MEDS ORDERED: LORazepam 0.5 MG in SYRINGE 0.25 ML IV PRN (17:41)
[2023-11-17] MEDS ORDERED: ALBUTEROL HFA 8 GM INHALER INH PRN (17:41)
[2023-11-17] MEDS ORDERED: NALOXONE HCL 0.4 MG/1 ML VIAL/CARP IV PRN (17:41)
[2023-11-17] MEDS ORDERED: MAGNESIUM HYDROXIDE SUSP 30 ML UDC PO PRN (17:41)
[2023-11-17] MEDS ORDERED: PROMETHAZINE HCL 12.5 MG in SODIUM CHLORIDE 0.9% 50 ML IV PRN (17:41)
[2023-11-17] MEDS ORDERED: METOCLOPRAMIDE HCL INJ 5 MG/ML 2 ML VIAL IV PRN (17:41)
[2023-11-17] MEDS ORDERED: ACETAMINOPHEN 1,000 MG/100 ML VIAL IV PRN (17:41)
[2023-11-17] MEDS ORDERED: diphenhydrAMINE Capsule 25 MG CAP PO PRN (17:41)
[2023-11-17] MEDS ORDERED: HYDROmorphone INJ 0.5 MG/0.5 ML SYR IV PRN (17:41)
[2023-11-17] MEDS ORDERED: ACETAMINOPHEN 500 MG TAB PO PRN (17:41)
[2023-11-17] MEDS ORDERED: ONDANSETRON 4 MG OD TAB PO PRN (17:41)
[2023-11-17] MEDS ORDERED: LORazepam 0.5 MG TAB PO PRN (17:41)
--- NOTE | 2023-11-17 18:03 | Anesthesiology Consultation ---
Date of Service November 17, 2023 Assessment & Plan (1) Encounter for pre-operative examination: Chart Review Chart Review: Acceptable Risk for Surgery History Surgery Operation Date: 11/18/23 07:00 Proposed Procedures p Anterior Cervical Discectomy Fusion C6-C7 - Negrito Damico DO Height/Weight Height: 5 ft 9 in Weight: 76.6 kg Allergies Allergy/AdvReac Type Severity Reaction Status Date / Time montelukast [From Singulair] Allergy Mild Migraines Verified 11/15/23 13:12 and vomiting. oxycodone [From Percocet] Allergy Mild Itching Verified 11/15/23 13:12 Medications Home Medications Medication Instructions Recorded Confirmed Last Taken diphenhydramine HCl 25 mg tablet 25 mg PO TID PRN Allergy Symptoms 07/01/23 11/17/23 Unknown (Benadryl Allergy) prochlorperazine maleate 5 mg 5 mg PO BID PRN nausea and 08/09/23 11/17/23 Unknown tablet (Compazine) vomiting #10 tabs famotidine 20 mg tablet 20 mg PO BID #60 tabs 09/30/23 11/15/23 Unknown albuterol sulfate 90 mcg/actuation 2 inh inhalation Q4H PRN shortness 10/17/23 11/17/23 Unknown aerosol inhaler (ProAir HFA) of breath or wheezing #8.5 grams ibuprofen 200 mg tablet 400 mg PO Q6H PRN Pain 11/15/23 11/15/23 Unknown pantoprazole 40 mg tablet,delayed 40 mg PO BID 1 month #60 tabs 11/16/23 11/17/23 Unknown release (Protonix) fluticasone 100 mcg-salmeterol 50 0 inh inhalation BID 11/17/23 11/17/23 Unknown mcg/dose blistr powdr for inhalation (Advair Diskus) Past Medical History Medical History Asthma uses all inhalers prn Environmental allergies GERD (gastroesophageal reflux disease) Hx of migraines Past Family History Family History Grandmother (Paternal) Myocardial infarction Denies family history of Ovarian cancer Prostate cancer Breast cancer Colorectal cancer Past Surgical History Surgical History Hx of local excision of skin lesion as a child, mole removed History of wisdom tooth extraction Social History Smoking Status: Never smoker Do You Dip or Chew Tobacco: No Hx Alcohol Use: No Hx Substance Use: No substance use type: does not use Physical Exam Vital Signs Last Vital Signs Temp 36.9 C 11/17/23 11:48 Pulse 90 11/17/23 16:00 Resp 18 11/17/23 16:00 BP 137/85 11/17/23 16:00 Pulse Ox 96 11/17/23 16:00 O2 Del Method Room Air 11/17/23 16:00 Testing Laboratory Results 11/17/23 12:00 11/17/23 12:00
[2023-11-17] MEDS: LACTATED RINGER'S 1,000 ML IV SCH (18:16)
[2023-11-17] MEDS: PANTOprazole 40 MG TAB PO SCH (20:24)
[2023-11-17] MEDS: HYDROmorphone INJ 1 MG/ML SYRINGE IV PRN (20:24)
[2023-11-17] MEDS: HYDROCODONE/ACETAMOPHEN 5/325MG TAB PO PRN (21:37)
[2023-11-18] MEDS: HYDROmorphone INJ 1 MG/ML SYRINGE IV PRN ×7 (00:09→12:25)
[2023-11-18] MEDS: ONDANSETRON INJ 2 MG/ML 2 ML VIAL IV PRN ×2 (00:09→06:10)
[2023-11-18] MEDS: HYDROCODONE/ACETAMOPHEN 5/325MG TAB PO PRN ×2 (01:44→05:47)
[2023-11-18] MEDS: LACTATED RINGER'S 1,000 ML IV SCH ×3 (05:48→22:52)
[2023-11-18] MEDS ORDERED: ceFAZolin 2000MG 2,000 MG/15 ML SYR IV SCH (06:00)
[2023-11-18] MEDS: PANTOprazole 40 MG TAB PO SCH ×2 (07:33→20:27)
[2023-11-18] MEDS ORDERED: MIDAZOLAM HCL 1 MG/ML 2ML VIAL ONE (07:41)
[2023-11-18] MEDS ORDERED: PROPOFOL IV EMULSION 10 MG/ML 20 ML VIAL IV ONE ×3 (07:41→15:02)
[2023-11-18] MEDS ORDERED: DEXAMETHASONE SOD INJ 4 MG/ML VIAL ONE (07:41)
[2023-11-18] MEDS ORDERED: fentaNYL citrate PF 100 MCG/2 ML VIAL ONE (07:41)
[2023-11-18] MEDS ORDERED: HYDROmorphone INJ 2 MG/ML SYR/VIAL ONE (07:41)
[2023-11-18] MEDS ORDERED: LIDOCAINE 2% 2 ML VIAL/AMP(20MG/ML) INFIL ONE (07:41)
--- NOTE | 2023-11-18 07:41 | History & Physical Bridge Note ---
Date of Service November 18, 2023 History & Physical Bridge Note I have examined the patient, reviewed the History & Physical and in the interval since the performance of the History & Physical I have noted the following changes of clinical significance: Patient exhibits progressive neurologic decline with marked deficits of his left tricep. Narcotic medication is providing little to no relief. Subsequently recommending emergent anterior cervical discectomy and fusion C6-C7.
[2023-11-18] MEDS ORDERED: ceFAZolin 330 MG/ML 1 GM VIAL ONE (08:00)
[2023-11-18] MEDS ORDERED: ONDANSETRON INJ 2 MG/ML 2 ML VIAL IV PRN ×2 (08:05→13:41)
[2023-11-18] MEDS ORDERED: ATROPINE SULFATE 0.1 MG/ML 10ML SYR IV PRN (08:05)
[2023-11-18] MEDS ORDERED: ePHEDrine sulfate 50 MG/ML AMP IV PRN (08:05)
[2023-11-18] MEDS ORDERED: FLOSEAL HEMOSTATIC MATRIX 10ML TOP ONE (09:06)
[2023-11-18] MEDS ORDERED: GLYCOPYRROLATE 0.2 MG/ML VIAL ONE (09:46)
[2023-11-18] MEDS ORDERED: ePHEDrine sulfate 50 MG/ML AMP ONE (09:46)
[2023-11-18] MEDS ORDERED: NEOSTIGMINE METHYLSULFATE 1 MG/ML 10ML VIAL ONE (09:46)
--- NOTE | 2023-11-18 09:50 | Operative Report ---
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 #2 anterior cervical arthrodesis C6-C7. #3 placement of Spira 9 mm cage with I factor C6-C7. #4 placement of K2 M plate and screws across C6-C7. Surgeon Negrito Damico, DO Magazine Writer Will Bynum Estimated Blood Loss 10 Findings Consistent with Post-Op Diagnosis Specimens None Indications This is a 33-year-old male presents above-mentioned diagnosis. Patient is not responding to Dilaudid IV narcotics for pain control demonstrating gross deficit to the left tricep and subsequently is here for emergent anterior cervical discectomy and fusion C6-C7. Description of Procedure Patient was met with identified informed consent obtained. Patient was then taken to the operative suite underwent ablation placed in supine position with the head in the Song head bone grinder. All bony prominences well-padded eyes inspected to ensure no external precipice spinal. This point the anterior cervical spine was prepped and draped in a sterile fashion. With the assistance of fluoroscopy identified the C6-C7 disc base and a transverse incision was placed over the right anterior aspect the cervical spine overlying the region. Blunt dissection with the assistance of bipolar electrocautery is then performed down to and exposing the anterior cervical spine at C6-C7. Several tight retractors placed. Informed complete discectomy of C6-C7 out to the uncovertebral joint laterally. Massive fragments of disc material noted in the left neural foramen. They removed in their entirety. The endplates were then burred to subcortical bleeding bone and a 9 mm Spira cage with I factor tapped in position. [place] distracting pins had been utilized for this extraction visualization. They were subsequently removed and a K2 M plate and screws applied with the assistance of fluoroscopy. Incision was then copiously irrigated explored to ensure no damage to surrounding structures or remaining bleeding. 10 round RAEGAN drain inserted. Incision was then closed with 2 Vicryl in the fascia and 4 Monocryl for fascial closure. Steri-Strips sterile dressing placed. Patient awakened taken to PACU stable condition. Please note spinal cord monitoring was utilized at the procedure no changes noted. Lastly Will Bynum was present at the entire surgery and all the patient positioning complex portions of the surgery and final skin closure. I attest to the content of the Intraoperative Record and any orders documented therein. Any exceptions are noted below.
--- NOTE | 2023-11-18 10:25 | Fluoroscopy Report ---
FL cervical 2-3V CLINICAL HISTORY: ACDF C6-C7 COMPARISON STUDY: MRI 11/17/2023 FLUOROSCOPY TIME: 19.6 seconds FLUOROSCOPY IMAGES: 3 EXPOSURE DOSE: 1.71 mGy FINDINGS: Single level anterior plate and screw fusion hardware is noted at what is labeled the C6-C7 level. Evaluation is limited secondary to positioning of the patient. Endotracheal tube with surgica l drainage catheter and anterior surgical sponge. Note that the images were submitted following compl etion of the surgery. IMPRESSION: Fluoroscopic assistance as above. ACT 112: Negative or not required by law. Electronically signed by: Enrique Roman M.D. 11/18/2023 10:24 AM
[2023-11-18] MEDS: fentaNYL citrate PF 100 MCG/2 ML VIAL IV PRN ×4 (10:30→10:48)
--- NOTE | 2023-11-18 11:06 | Anesthesiology Progress Note ---
Date of Service November 18, 2023 Anesthesia Post Procedure Vital Signs Vital Signs: Temp Pulse Pulse Pulse Resp BP BP 11/18/23 11:00 59 L 15 11/18/23 10:50 59 L 14 11/18/23 10:40 62 15 11/18/23 10:30 58 L 17 11/18/23 10:20 60 16 11/18/23 10:13 97.5 F L 80 16 11/18/23 08:03 97.9 F 91 H 18 11/17/23 21:20 97.7 F 88 16 122/84 11/17/23 19:11 76 18 135/88 11/17/23 18:21 91 H 18 135/88 11/17/23 16:00 90 18 137/85 11/17/23 14:52 92 H 18 134/88 11/17/23 13:35 11/17/23 13:31 77 11/17/23 13:17 105 H 19 136/105 H 11/17/23 11:48 98.4 F 85 18 136/82 BP Pulse Ox O2 Del Method O2 Flow Rate 11/18/23 11:00 121/80 99 Nasal Cannula 2 11/18/23 10:50 122/82 99 Nasal Cannula 2 11/18/23 10:40 121/79 100 Nasal Cannula 2 11/18/23 10:30 127/80 100 Oxymask 5 11/18/23 10:20 117/78 98 Oxymask 5 11/18/23 10:13 123/78 97 Oxymask 5 11/18/23 08:03 118/84 96 Room Air 11/17/23 21:20 94 Room Air 11/17/23 19:11 98 Room Air 11/17/23 18:21 94 Room Air 11/17/23 16:00 96 Room Air 11/17/23 14:52 95 Room Air 11/17/23 13:35 98 Room Air 11/17/23 13:31 11/17/23 13:17 97 Room Air 11/17/23 11:48 97 Room Air Pain Intensity Left Shoulder: Pain Intensity: 7 Bilateral Shoulder: Pain Intensity: 5 Transfer of Care Handoff Completed per policy Notes Mental Status: alert / awake / arousable and participated in evaluation Patient Amnestic to Procedure: Yes Nausea / Vomiting: adequately controlled Pain: adequately controlled Airway Patency, RR, SpO2: stable & adequate BP & HR: stable & adequate Hydration State: stable & adequate Anesthetic Complications: no major complications apparent and Pt Satisfied with anesthetic care
[2023-11-18] MEDS ORDERED: FAMOTIDINE 20 MG TAB PO PRN (13:41)
[2023-11-18] MEDS ORDERED: HYDROmorphone INJ 1 MG/ML SYRINGE IV PRN (13:41)
[2023-11-18] MEDS ORDERED: MAGNESIUM HYDROXIDE SUSP 30 ML UDC PO PRN (13:41)
[2023-11-18] MEDS ORDERED: SOD PHOSPHATE/SOD BIPHOSPHATE ENEMA 132 ML BTL PR PRN (13:41)
[2023-11-18] MEDS ORDERED: LORazepam 0.5 MG TAB PO PRN (13:41)
[2023-11-18] MEDS ORDERED: ACETAMINOPHEN 500 MG TAB PO PRN (13:41)
[2023-11-18] MEDS ORDERED: NALOXONE HCL 0.4 MG/1 ML VIAL/CARP IV PRN (13:41)
[2023-11-18] MEDS ORDERED: METOCLOPRAMIDE HCL INJ 5 MG/ML 2 ML VIAL IV PRN (13:41)
[2023-11-18] MEDS ORDERED: HYDROCODONE/ACETAMOPHEN 5/325MG TAB PO PRN (13:41)
[2023-11-18] MEDS ORDERED: DO NOT ADMINISTER PNEUMOCOCCAL VACCINE PRN (13:41)
[2023-11-18] MEDS ORDERED: DO NOT ADMINISTER FLU VACCINE PRN (13:41)
[2023-11-18] MEDS ORDERED: PROMETHAZINE HCL 12.5 MG in SODIUM CHLORIDE 0.9% 50 ML IV PRN (13:41)
[2023-11-18] MEDS ORDERED: RACEPINEPHRINE 2.25% NEBU SOLN 0.5 ML VIAL INH PRN (13:41)
[2023-11-18] MEDS ORDERED: ACETAMINOPHEN 1,000 MG/100 ML VIAL IV PRN (13:41)
[2023-11-18] MEDS ORDERED: dexAMETHasone 8 MG in SYRINGE 0 ML IV PRN (13:41)
[2023-11-18] MEDS ORDERED: diphenhydrAMINE Capsule 25 MG CAP PO PRN (13:41)
[2023-11-18] MEDS ORDERED: bisacodyL 10 MG SUPP PR PRN (13:41)
[2023-11-18] MEDS ORDERED: LORazepam 0.5 MG in SYRINGE 0.25 ML IV PRN (13:41)
[2023-11-18] MEDS ORDERED: HYDROmorphone INJ 0.5 MG/0.5 ML SYR IV PRN (13:41)
[2023-11-18] MEDS ORDERED: hydrOXYzine HCl 25 MG TAB PO PRN (13:41)
[2023-11-18] MEDS ORDERED: ALUMINUM/MAGNESIUM SUSP 30 ML UDC PO PRN (13:41)
[2023-11-18] MEDS ORDERED: ROCURONIUM BROMIDE 10 MG/ML 5 ML VIAL IV ONE (15:02)
[2023-11-18] MEDS: ceFAZolin 2000MG 2,000 MG/15 ML SYR IV SCH ×2 (17:05→22:53)
[2023-11-18] MEDS: ONDANSETRON 4 MG OD TAB PO PRN (20:27)
[2023-11-18] MEDS ORDERED: DOCUSATE SODIUM/SENNA 50/8.6MG TAB PO SCH (21:00)
[2023-11-18] MEDS: traMADol HCL 50 MG TABLET PO PRN (21:14)
[2023-11-19] MEDS: traMADol HCL 50 MG TABLET PO PRN ×2 (01:34→05:47)
[2023-11-19] MEDS: ONDANSETRON 4 MG OD TAB PO PRN (03:32)
[2023-11-19] MEDS ORDERED: POLYETHYLENE (MIRALAX) 17 GM PACK PO SCH (06:00)
[2023-11-19] MEDS ORDERED: COUGH DROP (SUGAR FREE) LOZ 24 LOZ/1 BOX BUCCAL ONE (07:39)
[2023-11-19] MEDS: PANTOprazole 40 MG TAB PO SCH (08:00)
--- NOTE | 2023-11-19 08:05 | Discharge Summary ---
Date of Service November 19, 2023 Admission HPI Per Admitting Provider This is a 33-year-old [id number] male who presents emergency room with severe left arm pain and weakness. He states he had a history of neck pain and left arm symptoms for approximately a month. Unfortunately last 2 days it has been severe in nature. Is nonradiating. It radiates to the left intrascapular region down the left posterior arm below the elbow into his middle fingers. His right upper extremity is asymptomatic. He denies any specific trauma fall or event. He notes marked sensory deficits to the left hand compared to the right. He is unable to sleep. Medications are not providing any relief. Discharge Data Consultations 11/17/23 15:12 ED Decision to Admit Stat 11/17/23 17:41 Consult Anesthesiology Routine Procedures Performed Operation Date: 11/18/23 07:00 Actual Procedures p Anterior Cervical Discectomy Fusion C6-C7(Not Applicable) - Negrito Damico, [facility] (1) Herniation of cervical intervertebral disc with radiculopathy: Patient is a pleasant 33-year-old male with history physical examination and radiographic images consistent with the above-mentioned diagnosis. For this reason is brought to the operating room on 11/18/2023 and undergone an anterior cervical discectomy and fusion at C6-7. This was performed by Dr. Damico under general anesthesia. He left the operating room with a RAEGAN drain and collar in place and was transferred to PACU in stable condition. Is then transferred to the orthopedic floor. He was seen this morning postoperative day #1. His throat was sore but the arm pain had improved he had some mild numbness and tingling in the thumb and index finger on the left. He had been up and walking and tolerating soft foods. He has been deemed safe for home discharge. His discharge instructions were to avoid lifting anything heavier than 5 to 7 pounds. He should keep his collar in place when he is up and walking he remove it for showers and meals. He was a change dressing once daily till there is no drainage once there is no drainage he may leave the incision open to air and may shower. He is to see us for follow-up in 2 weeks or sooner if he develops any increased pain numbness tingling or drainage from the incision fevers or chills.
[2023-11-19] MEDS ORDERED: dexAMETHasone 6 MG in SYRINGE 0 ML IV SCH (09:00)
== END 2023-11-19 10:37 | disposition home or self-care (01) | DRG 473 ==
LOC: ED 11:25 → EDINP 15:26 → INTOOBSV 15:26 → 3E 17:41